=== PATIENT | male | born 1990 | race Caucasian/White ===

== ENCOUNTER 2021-12-18 18:41 | Emergency (ER) | payer OTHER, SELFPAY ==
--- NOTE | 2021-12-18 18:41 | ED.MALEGU ---
HPI - Male Genitourinary General Stated complaint: STD Time Seen by Provider: 12/18/21 18:53 Source: patient and RN notes reviewed Mode of arrival: ambulatory Limitations: no limitations History of Present Illness HPI Narrative: 31-year-old male presents for STD screening. He reports he had unprotected sex with a different partner and would like to be checked for STDs. He denies any symptoms, denies discharge, dysuria, lesions, rash. MD Complaint: possible STD exposure Related Data Allergies Allergy/AdvReac Type Severity Reaction Status Date / Time No Known Allergies Allergy Unverified 01/31/15 21:31 Review of Systems Review of Systems: CONSTITUTIONAL: Denies malaise, chills, sweats, or fever. CARDIOVASCULAR: Denies chest pain, palpitations, or edema. RESPIRATORY: Denies cough or dyspnea. GASTROINTESTINAL: Denies abdominal pain, nausea, vomiting, diarrhea GENITOURINARY: Denies dysuria, frequency, urgency, suprapubic pressure, discharge Denies flank pain or hematuria. SKIN: Denies lesions, rash or itching. MUSCULOSKELETAL: Denies back pain or myalgia. All systems reviewed & are unremarkable except as noted in HPI and below PMFSH Comments At time of signature, agree with nursing past medical, surgical, social and family history. There is no relevant family history pertinent to the presenting complaint Exam Narrative: GENERAL: Well-appearing, well-nourished, and in no acute distress. HEAD: Normocephalic. EYES: PERRLA, conjunctivae clear. NECK: Supple. No lymphadenopathy CHEST: Clear to auscultation. No respiratory distress. HEART: Regular rate and rhythm. SKIN: Warm, dry, no rash. NEURO: Alert and oriented x3. PSYCH: Normal mood and affect Course Course Emergency Course: Patient is aware of diagnosis, understands and agrees to treatment plan. Anticipatory guidance given. Patient agrees to follow-up as directed and is aware of reasons to seek care at the emergency department. Portions of this record may have been created with voice recognition software Level of Care: Express Care Visit Vital Signs Vital signs: Reviewed. MDM - Male Genitourinary MDM Narrative Medical decision making narrative: Exam findings show no acute concerns or changes; patient is non-toxic appearing and is in no distress. Patient is appropriate for outpatient treatment and follow-up. Critical Care Time Critical Care Time Critical Care Time: No Discharge Plan Discharge Clinical Impression: Screen for STD (sexually transmitted disease) Patient Disposition: Home, Self-Care Condition: Stable Instructions: Safe Sex Practices (ED) Additional Instructions: You have been tested for potential gonorrhea, chlamydia, and trichomoniasis today. You will receive a phone call in 2-3 days with the results of today's testing. If any test is positive you will receive treatment at that time, you may have to return for an injection. It is very important that you avoid unprotected intercourse during treatment and for 7 days AFTER TREATMENT is complete and until your partner(s) have been treated. Please encourage your partner(s) to seek testing and treatment. When you have been exposed to sexually transmitted infections, it is important that you seek comprehensive testing, since we do not provide testing for all sexually transmitted infections. Some infections can have no symptoms, but cause serious health problems. Contact your health care provider or report to the emergency department if: You have genital swelling or pain, or unusual bleeding. You have joint pain, rash, swollen lymph nodes or night sweats. You are severe abdominal pain. You have a fever. Symptoms do not go away or they get worse even after treatment. You have bleeding or pain during sex. Follow-up/Referrals: UNKNOWN,DOCTOR [Non-Staff] - Time of Disposition: 19:02
[2021-12-18 18:50] VITALS: BP 215/127; PULSE 118; RESP 20; TEMP 37.3; O2SAT 100
== END 2021-12-18 19:05 | disposition home or self-care (01) ==
PROVIDERS: Emergency Provider Nurse Practitioner; PCP Internal Medicine
DX: Z11.3 Encounter for screening for infections with a predominantly sexual mode of transmission (principal)
CPT/HCPCS: 87491; 87591; 87661; 99203; G0463

== ENCOUNTER 2023-04-08 16:49 | Inpatient (IN) | payer OTHER, SELFPAY ==
[2023-04-08] VITALS (12 sets, daily range): BP systolic 132–193; BP diastolic 93–122; PULSE 85–112; RESP 15–19; TEMP 36.5–36.7; O2SAT 93–98; BMI 47.5
--- NOTE | ~2023-04-08 | CT_ITS ---
EXAMINATION: CTA chest PE protocol DATE: 04/08/2023 19:56 INDICATION: Generalized chest pain. Shortness of breath. TECHNIQUE: Computed tomography angiography (CTA) of the chest was performed with 100 mL Omnipaque-350 intravenous contrast timed to evaluate the pulmonary arteries. Coronal maximum intensity projection 3D-reconstructions were created by the technologist. Automated exposure control and iterative reconst ruction technique were employed. The dose-length product was 1041.19 mGy-cm. COMPARISON: None. FINDINGS: There is mild dependent atelectasis in the lungs bilaterally. No pleural effusion. Cardiome jenny is noted. There is a small pericardial effusion. There is ectasia of ascending aorta measuring 4 .3 cm. There is wall thickening of ascending aorta and brachiocephalic trunk. There is no pulmonary e mbolus. There is mild thoracic spondylosis. There is mild chronic anterior wedging of T11 and T12 sangita tebral bodies. IMPRESSION: 1. Wall thickening of ascending aorta and brachiocephalic trunk suspicious for intramural hematoma. E ctasia of ascending aorta measuring 4.3 cm. 2. Small pericardial effusion. 3. Cardiomegaly. 4. No pulmonary embolus. Reviewed, dictated and finalized at location E. ICAL PROJECT COORDINATOR IMPRESSION: 1. Wall thickening of ascending aorta and brachiocephalic trunk suspicious for intramural hematoma. Ectasia of ascending aorta measuring 4.3 cm. 2. Small pericardial effusion. 3. Cardiomegaly. 4. No pulmonary embolus.
--- NOTE | 2023-04-08 16:50 | ECG_ITS ---
Measurements Intervals [place] Rate: 84 P: 31 NE: 168 QRS: 23 QRSD: 112 T: 99 QT: 396 QTc: 470 Interpretive Statements SINUS RHYTHM LEFT ATRIAL ENLARGEMENT LEFT VENTRICULAR HYPERTROPHY WITH ST-T CHANGE ST ELEVATION IN ANTEROSEPTAL LEADS CONSISTENT WITH INJURY, PERICARDITIS, OR EARLY REPOLARIZATION BASELINE ARTIFACT- I, III, AVR, AVL ABNORMAL ECG NO PREVIOUS ECG AVAILABLE FOR COMPARISON Electronically Signed On 04-08-2023 19:29:44 WHEELABRATOR OPERATOR by Russell Wall D.O.
--- NOTE | 2023-04-08 17:02 | ECG_ITS ---
Measurements Intervals [place] Rate: 83 P: 36 FL: 171 QRS: 6 QRSD: 113 T: 94 QT: 409 QTc: 482 Interpretive Statements SINUS RHYTHM POSSIBLE RIGHT ATRIAL ENLARGEMENT POSSIBLE LEFT ATRIAL ENLARGEMENT INCOMPLETE RIGHT BUNDLE BRANCH BLOCK LEFT VENTRICULAR HYPERTROPHY AND ST-T CHANGE ST ELEVATION IN ANTEROSEPTAL LEADS CONSISTENT WITH INJURY, PERICARDITIS, OR EARLY REPOLARIZATION ABNORMAL ECG COMPARED TO ECG 04/08/2023 16:54:35 NO SIGNIFICANT CHANGES Electronically Signed On 04-08-2023 19:31:14 FAN BLADE TRUER by Russell Wall D.O.
--- NOTE | 2023-04-08 17:02 | ED.CHESTPAIN ---
HPI - Chest Pain General Chief Complaint: Chest Pain Stated Complaint: Chest pain Time Seen by Provider: 04/08/23 17:01 History of Present Illness HPI narrative: 32-year-old male presenting with severe chest pain with difficulty breathing and nausea, pain radiates up to his throat, does not go to his back, no focal numbness or weakness anywhere; started while driving about 1 hr prior to arrival here. Related Data Home Medications Medication Instructions Recorded Confirmed No Home Medications 04/08/23 04/08/23 Allergies Allergy/AdvReac Type Severity Reaction Status Date / Time No Known Allergies Allergy Unverified 04/08/23 17:21 Review of Systems Review of Systems: CONST: No fever. HEENT: No sore throat C/V: chest pain RESP: trouble breathing GI: nausea : No dysuria. M/S: No joint pain. SKIN: No rash. NEURO: [No focal numbness or weakness] PSYCH: [No depression] Exam Narrative: EXAMINATION OF ORGAN SYSTEMS/BODY AREAS: Constitutional: Vital signs per nursing GENERAL: Appears uncomfortable HEAD: Normal with no signs of head trauma. EYES: EOMI, conjunctiva normal ENT: Hearing grossly intact LUNGS: CTAB HEART: [Regular rate and rhythm]; normal radial and DP pulses bilaterally ABD: [Soft], [nontender to palpation] EXT: Normal range of motion SKIN: [No rashes or lesions.] NEURO: [Alert and oriented x 3. No focal sensory or strength deficits.] PSYCH: Normal affect Course Vital Signs Vital signs: Vital Signs Temperature 98.1 F 04/08/23 16:52 Pulse Rate 112 H 04/08/23 16:52 Respiratory Rate 17 04/08/23 16:52 Blood Pressure 132/93 H 04/08/23 16:52 Pulse Oximetry 98 04/08/23 16:52 Oxygen Delivery Room Air 04/08/23 16:52 Temperature 98.1 F 04/08/23 16:52 Pulse Rate 85 04/08/23 17:12 Respiratory Rate 17 04/08/23 16:52 Blood Pressure 132/93 H 04/08/23 16:52 Pulse Oximetry 98 04/08/23 16:52 Oxygen Delivery Room Air 04/08/23 16:52 MDM - Chest Pain MDM Narrative Medical decision making narrative: 32-year-old male presenting with severe chest pain with difficulty breathing and nausea, pain radiates up to his throat, does not go to his back, no focal numbness or weakness anywhere, medical history includes smoking, hypertension, obesity. He does appear quite uncomfortable here, he has normal radial and DP pulses bilaterally, lungs CTAB, no neuro deficits. 17:57: I was handed EKG; very concerning to me for STEMI with GRABIEL in V1, V2, ST depression I, aVL. I immediately went to talk to the patient/family and performed exam. 17:00: Immediately called cardiology, d/w Dr Holman who reviewed imaging and did not feel it was consistent with STEMI; recommended repeat EKG in 10 min. This is ordered. 17:16 V1 and V2 elevations appear even bigger. D/w Dr Holman, we will activate labor arbitrator hearing office. Plan d/w patient and family; discussed the possibility of STEMI vs potentially other causes but given the concern for STEMI / risks/benefits, they would like pt to go to labor arbitrator hearing office. I did consider possible dissection however without pain radiating to back and no focal neurovascular deficits, this seems less likely. Patient going to labor arbitrator hearing office at this time in serous condition. Lab Data 04/08/23 17:13 04/08/23 17:13 Labs: Lab Results 04/08/23 04/08/23 Range/Units 17:13 17:37 WBC 11.8 H (4.5-10.0) K/mm3 RBC 4.68 (4.6-6.20) M/mm3 Hgb 13.0 L (14.0-18.0) g/dL Hct 40.9 L (42.0-52.0) % MCV 87.4 (80-100) fl MCH 27.8 (26-34) pg MCHC 31.8 L (32-36) g/dl RDW 13.6 (11.5-14.5) % Plt Count 256 (150-375) k/mm3 MPV 10.3 (7.4-10.4) fl Immature Gran % (Auto) 0.2 (0-0.5) % Neut % (Auto) 75.1 H (45.5-73.1) % Lymph % (Auto) 16.9 L (18.3-44.2) % [place] % (Auto) 5.4 (2.6-8.5) % Eos % (Auto) 1.9 (0-4.4) % Baso % (Auto) 0.5 (0.2-1.2) % Lymph # (Auto) 2.00 (0.9-3.2) K/mm3 [place] # (Auto) 0.6 (0.1-0.6) K
[2023-04-08 17:20] LABS: Basophils Absolute Auto 0.1 K/mm3 (0.0-0.1); Basophils Percent Auto 0.5 % (0.2-1.2); Eosinophils Absolute Auto 0.2 K/mm3 (0-0.3); Eosinophils Percent Auto 1.9 % (0-4.4); Hematocrit 40.9 % (42.0-52.0); Immature Granulocyte Absolute 0.02 K/mm3 (0.00-0.031); Immature Granulocyte Percent A 0.2 % (0-0.5); Lymphocytes Percent Auto 16.9 % (18.3-44.2); Mean Corpuscular HGB Conc 31.8 g/dl (32-36); Mean Corpuscular Hemoglobin 27.8 pg (26-34); Mean Corpuscular Volume 87.4 fl (80-100); Mean Platelet Volume 10.3 fl (7.4-10.4); Monocytes Absolute Auto 0.6 K/mm3 (0.1-0.6); Monocytes Percent Auto 5.4 % (2.6-8.5); Neutrophils Absolute Auto 8.9 K/mm3 (1.3-6.7); Neutrophils Percent Auto 75.1 % (45.5-73.1); Platelet Count Result 256 k/mm3 (150-375); Red Blood Count 4.68 M/mm3 (4.6-6.20); Red Cell Distribution Width 13.6 % (11.5-14.5); White Blood Count 11.8 K/mm3 (4.5-10.0)
[2023-04-08] MEDS: TICAGRELOR 90 MG TABLET 180 MG PO (17:25)
[2023-04-08] MEDS: HEPARIN SODIUM 5,000 UNITS/ML VIAL 4000 UNITS IV PUSH (17:25)
[2023-04-08] MEDS: ASPIRIN 81 MG CHEWABLE TABLET 324 MG PO (17:26)
[2023-04-08] MEDS: HEPARIN SODIUM 5,000 UNITS/ML VIAL 1000 UNITS IV PUSH (17:26)
--- NOTE | 2023-04-08 17:29 | PC.NURSE ---
[facility] called for standby ETA 18min
[2023-04-08 17:32] LABS: Alanine Aminotransferase 26 U/L (6-50); Albumin Level 4.3 g/dL (3.5-5.1); Alkaline Phosphatase 67 U/L (38-126); Anion Gap 9 mmol/L (8-16); Aspartate Amino Transferase 27 U/L (17-59); Bilirubin,Total 0.5 mg/dL (0.2-1.3); Blood Urea Nitrogen 12 mg/dL (9-20); Carbon Dioxide 29 mmol/L (22-30); Chloride 102 mmol/L (98-107); Estimated CRCL calculation 134 ml/min; Estimated Glomerular Filt Rate > 60; Glucose 139 mg/dL (65-110); Lipase 166 U/L (23-300); Potassium 3.1 mmol/L (3.4-5.0); Sodium 140 mmol/L (137-145)
[2023-04-08 17:34] LABS: Prothrombin Time 13.6 Seconds (11.1-14.7)
[2023-04-08 17:35] LABS: Partial Thromboplastin Time 24.5 SECONDS (22.3-36.8)
[2023-04-08 17:43] LABS: Troponin I 0.017 ng/mL (0.000-0.034)
[2023-04-08 17:52] LABS: Cholesterol 169 mg/dL (0-200); HDL Direct 36 mg/dL; Triglycerides 89 mg/dL (<150)
[2023-04-08 18:02] LABS: LDL Cholesterol Direct 113 mg/dL
--- NOTE | 2023-04-08 18:54 | PM.IMHP ---
H&P: HPI History of Present Illness Date/Time: 04/08/23 18:54 Chief Complaint: Chest pain Narrative: This is a 32 year old patient with tobacco use who presented to [facility] for acute chest pain that began around 3:45PM while driving. [place] severe. Has never had chest pain prior to this. In the ER, there was concern for acute coronary syndrome given 1-2mm ST elevation in V1 and 1mm ST elevation in V2. Given his active chest pain, we decided to urgently take him to the clinical lab scientist. Review of Systems Review of Systems: All systems reviewed & are unremarkable except as noted in HPI and below (HPI) Meds Home Medications and Allergies Home Medications Medication Instructions Recorded Confirmed Type No Home Medications 04/08/23 04/08/23 History Allergies Allergy/AdvReac Type Severity Reaction Status Date / Time No Known Allergies Allergy Unverified 04/08/23 17:21 Vital Signs Vital Signs - 24 hr 04/08/23 16:52 04/08/23 17:12 Temperature 36.7 C Pulse Rate 112 H 85 Respiratory Rate 17 Blood Pressure 132/93 H Pulse Oximetry 98 Oxygen Delivery Room Air Exam Const: General: no acute distress HENMT: Mouth: Yes moist mucous membranes Eyes: General: appearance normal, both eyes and all related structures Sclera: sclerae normal Neck: Neck: supple Resp: Effort & Inspection: normal respiratory effort Cardio: Rate: regular rate Rhythm: regular rhythm Skin: General skin exam: normal color Neuro: Speech: normal speech Psych: Mental Status: mental status grossly normal Affect: normal affect H&P: Results Labs Labs: Short CBC 04/08/23 Range/Units 17:13 WBC 11.8 H (4.5-10.0) K/mm3 Hgb 13.0 L (14.0-18.0) g/dL Hct 40.9 L (42.0-52.0) % Plt Count 256 (150-375) k/mm3 BMP 04/08/23 17:13 Sodium 140 Potassium 3.1 L Chloride 102 Carbon Dioxide 29 BUN 12 Creatinine 1.00 Glucose 139 H Calcium 9.0 Cardiac Enzymes 04/08/23 Range/Units 17:13 Troponin I 0.017 (0.000-0.034) ng/mL Liver Function 04/08/23 Range/Units 17:13 Total Bilirubin 0.5 (0.2-1.3) mg/dL AST 27 (17-59) U/L ALT 26 (6-50) U/L Alkaline Phosphatase 67 (38-126) U/L Albumin 4.3 (3.5-5.1) g/dL Assessment and Plan Assessment and plan (1) Chest pain: Code(s): R07.9 - Chest pain, unspecified Status: Acute Assessment and Plan: Emergent cardiac cath did not show obstructive coronary disease, mild CAD noted. Will admit to ICU under IMU status for post cath recovery. Will obtain CT PE to rule out PE, aortic dissection, etc. Echocardiogram in the AM. Workup for other causes of chest pain. Possible pericarditis as his chest pain improves with sitting up and worsens with laying down??? Also does have elevated white count. Will check ESR and CRP. Drug screen pending.
--- NOTE | 2023-04-08 19:02 | WPDCARDPROC ---
Cardiac Cath Procedure Note Date of procedure:: 04/08/23 Performing physician:: CATHETERIZATION LABORATORY REPORT Procedure Date: 04/08/2023 Abnormal Psychology Teacher: yMra Holman M.D., [facility]? Referring Physician: Teetee Rod M.D. Anesthesia: Versed and Fentanyl were ordered and given in my presence at 18:01, procedure ended at 18:28. Supervision of nurse monitored moderate sedation with Versed and Fentanyl was provided for 27 minutes. Total of Versed 1mg and Fentanyl 50mcg were administered by the Broke Beater Machine Operator RN Batsheva Joiner. Pre-op Diagnosis: Acute Coronary Syndrome Post-op Diagnosis: Non-obstructive coronary arteries Procedure(s): Coronary angiography Access Site: Right radial artery Brief History and Clinical Indications: Patient is a 32 year old male who is referred for emergent cardiac cath for possible ACS. All risks, benefits and alternatives to left heart catheterization with or without percutaneous coronary intervention was discussed at length with the patient. Risk of complications including but not limited to bleeding, infection, arrhythmia, stroke, worsening kidney function, blood loss, groin hematoma, limb loss, emergency coronary artery bypass grafting, and even were discussed with the patient and all questions were answered. The patient understood and wished to proceed. Time out called, patient name, date of , medical record number, allergies, procedure performed, identify Abnormal Psychology Teacher, patient and staff member concurred with accurate data, procedure carried on. Findings: LEFT HEART CATHETERIZATION FINDINGS: 1. Left main: The left main coronary artery is widely patent without any significant obstructive disease. 2. Left anterior descending: The LAD and the diagonal branches have luminal irregularities without any significant obstructive angiographic disease. 3. Ramus: No obstructive disease. 4. Left circumflex: The left circumflex artery has luminal irregularities without any significant obstructive angiographic disease. 5. Right coronary artery: Large caliber vessel. The mid portion has mild disease. Otherwise, remainder of the RCA has luminal irregularities without any significant obstructive angiographic disease. The RCA is the dominant vessel. Description of Procedure: Informed consent signed and placed in the chart. Patient transferred to rn cardiac cath room. Prepped and draped in usual sterile fashion. 2% lidocaine injected subcutaneously in right wrist area. 22-gauge venipuncture catheter used to access the right radial artery under ultrasound guidance. 6-FR slender sheath placed in right radial artery. Nitroglycerine and Verapamil were given intraarterial through the sheath. Versacore wire advanced under fluoroscopy 5F FL 5 diagnostic catheter engaged Left Main Coronary Artery. 5F Tig 4 diagnostic catheter engaged Right Coronary Artery Multiple orthogonal angiogram obtained and reviewed Hemostasis was achieved by application of TR band. ? Assessment: Non-obstructive coronary arteries Post Operative Condition: Stable No significant blood loss Disposition: ICU Plan: See H&P note for additional recommendations/plan. ? Myra Holman M.D. Interventional Cardiology
[2023-04-08 20:01] LABS: Troponin I 0.014 ng/mL (0.000-0.034)
[2023-04-08] MEDS: SODIUM CHLORIDE 0.9% IV 1,000 ML 125 ML IV CONT (20:13)
[2023-04-08] MEDS: METOPROLOL TARTRATE INJ 5 MG/5 ML VIAL IV PUSH (20:19)
[2023-04-08] MEDS: KETOROLAC 15 MG/ML VIAL (*BKC) IV PUSH (20:20)
--- NOTE | 2023-04-08 20:43 | ADMGEN ---
This patient, Clifford Conde, was admitted to Intensive Care Unit-2 [id number] ON 04/08/2023. Patient/family oriented to hospital policies and general routines including ID bracelet, bed and alarms, visiting hours, pain management, procedures, bathroom and other care routines, personal items, smoking policy, room service/diet, and visiting hours. Information on how to activate the Rapid Response Team has been discussed. Patient/Family are encouraged to report perceived risks to care and to ask questions if they do not understand what they are told or what they should do.
[2023-04-08] MEDS: LABETALOL HCL INJ 200 MG in DEXTROSE 5% IN WATER 160 ML 30 MG IV CONT (20:53)
--- NOTE | 2023-04-08 20:59 | PM.IMCN ---
Assessment and Plan Assessment and plan (1) Severe uncontrolled hypertension: Code(s): I10 - Essential (primary) hypertension Status: Acute (2) Aortic aneurysm and dissection: Code(s): I71.00 - Dissection of unspecified site of aorta Status: Acute (3) Chest pain: Qualifiers: Chest pain type: unspecified Qualified Code(s): R07.9 - Chest pain, unspecified Code(s): R07.9 - Chest pain, unspecified Status: Acute (4) Morbid obesity with body mass index (BMI) of 40.0 or higher: Code(s): E66.01 - Morbid (severe) obesity due to excess calories Status: Acute Plan Chest pain due to his aortic dissection. I discussed the patient's case with cardiothoracic surgery at [place]. Dr. Vega has accepted the patient in transfer. We are awaiting bed placement. The patient's blood pressures are uncontrolled. Patient has been initiated on labetalol drip. Blood pressures are improved to 160 5/108. Ideally I would like the patient's blood pressures to put be around 120 but given the patient is chronically uncontrolled hypertension this is also not ideal hand with need to avoid relative hypotension in the patient with chronic hypertension the patient's pain has resolved with initiation of initial push of IV Lopressor. Unfortunately the patient had received Toradol that had been discontinued as nursing staff at scan the medication prior to discontinue order being placed. Patient did get heparin bolus full-dose aspirin and Brilinta as part of his initial treatment for suspected STEMI. Cardiac catheterization confirmed no significant coronary artery disease. Patient does have morbid obesity and snores. The patient probably has obstructive sleep apnea. He would benefit from outpatient polysomnogram. Cardiology was updated as to the patient's clinical condition and that transfer has been arranged. 80 minute spent in critical care activities. Due to a high probability of clinically significant, life threatening deterioration, the patient required my highest level of preparedness to intervene emergently and I personally spent this critical care time directly and personally managing the patient. This critical care time included obtaining a history; examining the patient; pulse oximetry; ordering and review of studies; arranging urgent treatment with development of a management plan; evaluation of patient's response to treatment; frequent reassessment; and discussions with other providers. It was exclusive of separately billable procedures and treating other patients and teaching time. Please see Assessment and Plan section and the rest of the note for further information on patient assessment and treatment. HPI Date of Consult Consult date: 04/08/23 Requesting Physician: Myra Holman MD Primary Care Provider: Chepe Rao, Consult Narrative Narrative: Clifford Conde is a 32 year old male with a past medical history of morbid obesity and untreated hypertension who presented to the ER today with sudden onset of shortness of breath and chest pain. Chest pain was substernal and epigastric in nature. 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 He was also reported sudden onset of weakness. He was pale and diaphoretic on arrival to the ER and in obvious distress. The pain was radiating from his chest up into his throat. Pain did not go to his back or arms. Symptoms started about an hour prior to arrival to the ER. EKG had mild ST elevation in V1 V2 and depression in 1 and aVL. The patient's case was discussed with Cardiology the patient was taken to the catheter finisher and inspector for suspected STEMI. Cardiac catheterization was completed and was negative for significant coronary artery disease. Stat CTA was obtained And while results were pending nursing staff called to tell me the patient's blood pressures were uncontrolled. Patient's blood pressures were 19
--- NOTE | 2023-04-08 22:00 | P.TS_ITS ---
Transfer Discharge Sum: Prov Provider Date of admission: 04/08/23 17:26 Primary care physician: Chepe Rao, MD Admitting clinician: Myra Holman MD Attending physician on admission: Myra Holman Consults: 04/08/23 Consult to Physician Routine Comment: Consulting Provider: Blanca Hernandes bingo caller/MD group to consult: Daphney Miramontes Reason for consultation: Medical management Has provider been notified: Yes Consult to Physician Routine Comment: Consulting Provider: Jeana Mancilla Reason for consultation: ICU status, labetalol drip Has provider been notified: Yes Attending physician on discharge: Myra Holman Discharging clinician: Myra Holman Anticipated date of transfer: 04/08/23 Receiving physician/facility: [facility] DS: Admitting Diagnosis Discharge Date 04/08/23 Admitting Diagnosis Chest pain DS: Discharge Diagnosis Discharge Diagnosis (1) Aortic aneurysm and dissection: Code(s): I71.00 - Dissection of unspecified site of aorta Status: Acute (2) Chest pain: Qualifiers: Chest pain type: unspecified Qualified Code(s): R07.9 - Chest pain, unspecified Code(s): R07.9 - Chest pain, unspecified Status: Acute (3) Severe uncontrolled hypertension: Code(s): I10 - Essential (primary) hypertension Status: Acute (4) Morbid obesity with body mass index (BMI) of 40.0 or higher: Code(s): E66.01 - Morbid (severe) obesity due to excess calories Status: Acute Plan This is a 32 year old male who presented with acute chest pain and borderline ST changes. Patient was taken to metallurgical lab technician urgently due to concern for STEMI, however, cardiac catheterization showed no obstructive CAD. CTA of the chest obtained after cath showed wall thickening of ascending aorta and brachiocephalic trunk suspicious for intramural hematoma, ectasia of ascending aorta measuring 4.3cm, small pericardial effusion. Given these findings, patient was transferred to [facility] for CT Surgery evaluation. Transfer Discharge Sum: Med Medications Active and Home Medications: Home Medications No Home Medications 04/08/23 [History Confirmed 04/08/23] Transfer Discharge Sum: Hosp Hospital Course Hospital course: This is a 32 year old male who presented with acute chest pain and borderline ST changes. Patient was taken to metallurgical lab technician urgently due to concern for STEMI, however, cardiac catheterization showed no obstructive CAD. CTA of the chest obtained after cath showed wall thickening of ascending aorta and brachiocephalic trunk suspicious for intramural hematoma, ectasia of ascending aorta measuring 4.3cm, small pericardial effusion. Given these findings, patient was transferred to [facility] for CT Surgery evaluation. Time Spent with Patient Time attestation: Total time spent providing and/or coordinating transfer services: Exam Narrative: See physical exam from H&P dated on 04/08/2023
== END 2023-04-08 22:20 | disposition short-term general hospital (02) | DRG 287 ==
LOC: ANHED 17:25 → ANHCATHLAB 17:57 → ANHED 19:21 → ANHICU 19:22
PROVIDERS: Emergency Medicine; Admitting Provider Internal Medicine; Emergency Provider Emergency Medicine; PCP Internal Medicine; Visit Provider Internal Medicine
PROC: 4A023N7 Measurement of Cardiac Sampling and Pressure, Left Heart, Percutaneous Approach (ICD-10-PCS; CPT 93454; principal; 2023-04-08 17:45)
DX: I71.00 Dissection of unspecified site of aorta (principal); Z68.43 Body mass index [BMI] 50.0-59.9, adult; I10 Essential (primary) hypertension; E66.01 Morbid (severe) obesity due to excess calories; F17.210 Nicotine dependence, cigarettes, uncomplicated
CPT/HCPCS: 36415; 71275; 80053; 80061; 83690; 84484; 85025; 85610; 85730; 86850; 86900; 86901; 93005; 93454; 96374; 99285; A9270; C1769; C1887; C1894; J1644; J1885; J2250; J2305; J3010; J7030; J7040; J7060; Q9967